=== PATIENT | female | born 1995 | race Caucasian/White ===

== ENCOUNTER 2017-03-27 14:18 | Emergency (ER) | payer OTHER ==
[~2017-03-27] VITALS: Ht 165.1 cm; Wt 52.2 kg
[~2017-03-27 14:18] MED LIST: AMOXIL500 MG; MOTRIN200 MG PO
[2017-03-27 14:39] VITALS: BP 127/90
--- NOTE | 2017-03-27 17:42 | NUR ---
Patient called, no answer.
--- NOTE | 2017-03-27 18:06 | NUR ---
PATIENT CALLED FROM LOBBY AT THIS TIME NO ANSWER PATIENT IS LWBS.
== END 2017-03-27 17:42 | disposition left against medical advice (07) ==
LOC: MED 14:18
DX: R10.9 Unspecified abdominal pain (principal); R11.10 Vomiting, unspecified; Z53.21 Procedure and treatment not carried out due to patient leaving prior to being seen by health care provider

== ENCOUNTER 2019-05-10 18:08 | Emergency (ER) | payer SELFPAY ==
[~2019-05-10] VITALS: Ht 162.6 cm; Wt 52.2 kg
[2019-05-10 18:27] VITALS: BP 110/66
--- NOTE | 2019-05-10 18:27 | NUR ---
PT AMBULATED TO ER BED 11
--- NOTE | 2019-05-10 18:43 | NUR ---
emt at bedside for ekg.
--- NOTE | 2019-05-10 18:46 | NUR ---
pt to ct scan via wheelchair.
--- NOTE | 2019-05-10 18:47 | NUR ---
pt bib self for bl lower leg swelling, bl foot swelling , and abd distention. pt states swelling started 3 days ago and abd pain started today w/ nausea. abd is round, soft, tender, active bs x4. pt awake and alert, calm sitting in bed. pt states she has liver cirrhosis but is unable to receive tx d/t insurance.
--- NOTE | 2019-05-10 18:53 | NUR ---
PT RETURNED TO CT VIA WHEELCHAIR
--- NOTE | 2019-05-10 18:57 | NUR ---
lab at bedside.
[2019-05-10 19:05] LABS: BASOPHILS % (AUTO) 0.6 % (0.0-2.0); EOSINOPHILS # (AUTO) 0.1 K/uL (0-0.4); EOSINOPHILS % (AUTO) 1.7 % (0.0-4.0); HEMATOCRIT 31.9 % (36-48); LYMPHOCYTES # (AUTO) 1.7 K/uL (2.5-16.5); LYMPHOCYTES % (AUTO) 41.6 % (20.5-51.1); MEAN CORPUSCULAR HEMOGLOBIN 35 pg (27-31); MEAN CORPUSCULAR HGB CONC 34 g/dL (33-37); MEAN CORPUSCULAR VOLUME 100.8 fL (80-94); MONOCYTES # (AUTO) 0.4 K/uL (0.8-1.0); NEUTROPHILS # (AUTO) 1.9 K/uL (1.8-7.7); NEUTROPHILS % (AUTO) 47.1 % (42.2-75.2); PLATELET COUNT (AUTO) 143 K/uL (140-450); RED BLOOD CELL COUNT(AUTO) 3.16 MIL/uL (4.20-5.40); RED CELL DISTRIBUTION WIDTH 13.4 % (11.6-13.7)
--- NOTE | 2019-05-10 19:15 | NUR ---
Assumed care of pt. Report given by KUSHAL Guadarrama
[2019-05-10 19:16] LABS: APPEARANCE,URINE CLEAR (CLEAR); BILIRUBIN,URINE NEGATIVE (NEGATIVE); BLOOD, URINE TRACE-I (NEGATIVE); COLOR,URINE YELLOW (YELLOW); LEUKOCYTE ESTERASE ,URINE NEGATIVE (NEGATIVE); NITRITE, URINE NEGATIVE (NEGATIVE); PH,URINE 7.5 (5.0-9.0); UGLUCOSE NEGATIVE (NEGATIVE)
[2019-05-10 19:20] LABS: ANION GAP 11.7 (8-16); CARBON DIOXIDE 28.1 mmol/L (21-32); CREATININE 0.6 mg/dL (0.6-1.3); POTASSIUM 3.8 mmol/L (3.5-5.1)
[2019-05-10 19:25] LABS: RBC,URINE 0-5 /HPF (0-5); WBC,URINE 0-5 /HPF (0-5)
[2019-05-10 19:26] LABS: ALBUMIN 3.6 g/dL (3.4-5.0); TOTAL BILIRUBIN 1.2 mg/dL (0.0-1.0)
--- NOTE | 2019-05-10 19:33 | NUR ---
Note [facility] in EDM - 05/10/19 at 1940 by [email or web address] UPON ASSESSMENT PT STATED "I HAVE BEEN DRINKING ALCOHOL EVERY DAY SINCE 17 YEARS OLD, AND HAVE BEEN CLEAN FOR 2 MONTHS." PT C/O OF ABDOMINAL PAIN X4 QUADRANTS, PAIN LEVEL 10/10, TWISTING CRAMPING. PT ALSO C/O BILATERAL LEG/FOOT SWELLING, HEAVY AND THROBBING. MED HX: CIRRHOSIS, HEPATITIS C, PANCREATITIS. SAFETY MEASURES IN PLACE. WILL CONTINUE TO MONITOR.
--- NOTE | 2019-05-10 19:33 | NUR ---
UPON ASSESSMENT PT STATED "I HAVE BEEN DRINKING ALCOHOL EVERY DAY SINCE 17 YEARS OLD, AND HAVE BEEN CLEAN FOR 2 MONTHS." PT C/O OF ABDOMINAL PAIN X4 QUADRANTS, PAIN LEVEL 10/10, TWISTING CRAMPING. ABDOMEN IS ROUND, DISTENDED. BOWEL SOUNDS ACTIVE X4 QUADRANTS. PT ALSO C/O BILATERAL LEG/FOOT SWELLING, HEAVY AND THROBBING WITH ENGORGEMENT OF THE VEINS. MED HX: CIRRHOSIS, HEPATITIS C, PANCREATITIS. SAFETY MEASURES IN PLACE. WILL CONTINUE TO MONITOR.
[2019-05-10 19:34] LABS: THYROID STIMULATING HORMONE 0.88 uIU/mL (0.34-3.74)
[2019-05-10 19:36] LABS: PROTHROMBIN TIME 12.6 secs (10.8-13.4)
[2019-05-10] MEDS ORDERED: FUROSEMIDE 20 MG TAB PO ONE (19:55)
[2019-05-10] MEDS ORDERED: HYDROcodone/APAP 5/325 MG 1 TAB TAB PO ONE (19:55)
--- NOTE | 2019-05-10 20:00 | NUR ---
PT GOING TO BE DISCHARGED, IV NOT NEEDED PER MD.
[2019-05-10] MEDS ORDERED: FUROSEMIDE 40 MG TAB ONE (20:14)
[2019-05-10] MEDS ORDERED: FUROSEMIDE 40 MG TAB PO ONE (20:15)
[2019-05-10 20:51] VITALS: BP 99/54
--- NOTE | 2019-05-10 20:51 | NUR ---
Patient discharged with v/s stable. Pt educated about AA, and informed to see a specialist per Dr. Bailey request. Written and verbal after care instructions given and explained. Patient alert, oriented and verbalized understanding of instructions. Ambulatory with steady gait. All questions addressed prior to discharge. ID band removed. Patient advised to follow up with PMD. Rx of lasix and norco was given. Patient educated on indication of medication including possible reaction and side effects. Opportunity to ask questions provided and answered.
== END 2019-05-10 20:51 | disposition home or self-care (01) ==
LOC: MED 18:08
DX: K70.30 Alcoholic cirrhosis of liver without ascites (principal); R60.0 Localized edema; D64.9 Anemia, unspecified; R74.0 Nonspecific elevation of levels of transaminase and lactic acid dehydrogenase [LDH]
CPT/HCPCS: 36415; 71045; 74176; 80053; 81001; 81025; 82140; 83690; 83880; 84443; 84484; 84703; 85025; 85610; 85730; 93005; 99284; G0482